=== PATIENT | female | born 1975 | race Caucasian/White ===

== ENCOUNTER → 2016-05-29 | Outpatient (REF) | payer OTHER ==
[~2016-05-29] MED LIST: MOBI7.5T10 PO; NORC5TAB PO; ROBA500T PO
== END ==
LOC: M LAB REF 16:36
PROVIDERS: ATTEND Internal Medicine
DX: N30.01 Acute cystitis with hematuria (principal)

== ENCOUNTER → 2016-06-18 | Outpatient (REF) | payer OTHER | LOC: M SMT 17:06 | PROVIDERS: ATTEND Nurse Practitioner Family | DX: R31.9 Hematuria, unspecified (principal) ==

== ENCOUNTER → 2016-07-11 | Outpatient (REF) | payer OTHER | LOC: M SMT 12:54 | PROVIDERS: ATTEND Nurse Practitioner Family | DX: N39.0 Urinary tract infection, site not specified (principal) ==

== ENCOUNTER → 2016-07-23 | Outpatient (CLI) | payer OTHER ==
[~2016-07-23] MED LIST changes: +ISOVUE-370 76% 100ML VIAL (Q9967) As Ordered ONE
--- NOTE | 2016-07-23 10:35 | REP ---
CT abdomen and pelvis without and with IV contrast: Without oral contrast. CT urogram. History: Hematuria. Comparison CT study April [address] contrast dose: 100 ml of Isovue 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 The bowel gas pattern is unremarkable. Lung window settings demonstrate segmental atelectasis with air bronchograms in the right lower lobe. This is a new finding from the April 2015 prior study. There is some linear fibrosis and discoid atelectasis in the left lower lobe as well. The liver and the spleen are normal in size and homogeneous in texture on pre- and post contrast enhanced images. No pancreatic abnormality is seen. The adrenal glands are unremarkable. There is no evidence of intrarenal nephrolithiasis on either side. No hydronephrosis is seen. The kidneys enhance symmetrically and are morphologically intact. No filling defect is seen in the intrarenal collecting systems. The ureters describe a normal course to the bladder. No filling defect is seen in the urinary bladder. No renal mass or cyst is seen. There are small physiologic cystic areas in the ovaries. Uterus is surgically absent. There is mild diverticulosis of the left colon. Small and large intestinal bowel loops are otherwise unremarkable. No abdominal wall defect is seen. No bony destructive lesion is appreciated. Impression: 1. No evidence of urinary tract calculus, hydronephrosis, cyst or mass. 2. Post cholecystectomy, hysterectomy and appendectomy. 3. Segmental atelectasis in the right lower lobe and subsegmental discoid atelectasis in the left lower lobe. Right lower lobe findings are new. Consider chest CT. Signed by Alban Matson MD 07/23/2016 02:28 P
== END ==
LOC: M RAD 08:09
PROVIDERS: ATTEND Nurse Practitioner Family
DX: R31.9 Hematuria, unspecified (principal); J98.11 Atelectasis
CPT/HCPCS: 74178; Q9967

== ENCOUNTER 2016-10-06 18:21 | Emergency (ER) | payer OTHER ==
[~2016-10-06] VITALS: Ht 165.1 cm; Wt 65.8 kg
[2016-10-06 18:21] VITALS: BP 116/66
[~2016-10-06 18:21] MED LIST changes: -ISOVUE-370 76% 100ML VIAL (Q9967) As Ordered ONE; +NORC1TAB4 PO; -NORC5TAB PO
[2016-10-06] MEDS ORDERED: TRAM50TA2 PO (18:29)
[2016-10-06] MEDS ORDERED: CIPROFLOXACIN 500 MG TAB PO ONE (19:00)
[2016-10-06] MEDS ORDERED: metroNIDAZOLE (FLAGYL) 500 MG TAB PO ONE (19:00)
[2016-10-06] MEDS ORDERED: FLAG500T PO (19:01)
[2016-10-06] MEDS ORDERED: CIPR500T89 PO (19:01)
[2016-10-06] MEDS ORDERED: metroNIDAZOLE (FLAGYL) 250 MG TAB As Ordered ONE (19:05)
== END 2016-10-06 19:20 | disposition home or self-care (01) ==
LOC: M ED 19:11
DX: K57.30 Diverticulosis of large intestine without perforation or abscess without bleeding (principal); R10.32 Left lower quadrant pain; N81.4 Uterovaginal prolapse, unspecified; M54.5 Low back pain; Z90.79 Acquired absence of other genital organ(s); Z90.49 Acquired absence of other specified parts of digestive tract; Z87.891 Personal history of nicotine dependence

== ENCOUNTER 2017-02-12 13:41 | Emergency (ER) | payer OTHER ==
[~2017-02-12] VITALS: Ht 165.1 cm; Wt 135.0 kg
[~2017-02-12 13:41] MED LIST changes: +CIPR-249 PO; +FLAG500T PO; +MOBI4TAB PO; -MOBI7.5T10 PO; +TRAM50TA2 PO
[2017-02-12] MEDS: IBUPROFEN 600 MG TAB PO ONE (14:17)
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
[2017-02-12] MEDS ORDERED: IBUP-1022 PO (15:23)
[2017-02-12] MEDS ORDERED: CYCL10TA PO (15:23)
[2017-02-12 15:36] VITALS: BP 126/72
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
== END 2017-02-12 15:38 | disposition home or self-care (01) ==
LOC: M ED 13:41 → EDBD 13:41 → M ED 15:38
DX: S13.4XXA Sprain of ligaments of cervical spine, initial encounter (principal); S70.11XA Contusion of right thigh, initial encounter; Z72.0 Tobacco use; V49.50XA Passenger injured in collision with unspecified motor vehicles in traffic accident, initial encounter; Y92.410 Unspecified street and highway as the place of occurrence of the external cause; Y93.89 Activity, other specified; Y99.9 Unspecified external cause status

== ENCOUNTER → 2018-03-27 | Outpatient (CLI) | payer OTHER ==
[2018-03-27 17:35] LABS: BASO # 0.1 10^3/uL (0.0-0.2); BASO % 0.4 % (0.0-1.0); EOS # 0.2 10^3/uL (0.0-0.50); EOS % 1.7 % (0.0-3.0); HEMATOCRIT 43.9 % (36.0-47.0); HEMOGLOBIN 14.6 g/dl (12.0-15.5); IMMATURE GRANULOCYTE % 0.4 % (0-3.0); LYMPH # 2.7 10^3/uL (1.5-4.5); LYMPH % 18.8 % (24.0-44.0); MEAN CORPUSCULAR HEMOGLOBIN 34.1 pg (27.0-33.0); MEAN CORPUSCULAR HGB CONC 33.3 g/dl (32.0-36.5); MEAN CORPUSCULAR VOLUME 102.6 fl (80.0-96.0); MONO # 0.9 10^3/uL (0.0-0.8); NEUTROPHILS # 10.3 10^3/uL (1.8-7.7); NEUTROPHILS % 72.7 % (36.0-66.0); PLATELET COUNT, AUTOMATED 263 10^3/uL (150-450); RED BLOOD COUNT 4.28 10^6/uL (4.00-5.40); RED CELL DISTRIBUTION WIDTH 13.2 % (11.5-14.5); WHITE BLOOD COUNT 14.2 10^3/uL (4.0-10.0)
== END ==
LOC: M WUC 11:35
DX: K57.93 Diverticulitis of intestine, part unspecified, without perforation or abscess with bleeding (principal)
CPT/HCPCS: 85025

== ENCOUNTER → 2018-04-15 | Outpatient (REF) | payer OTHER ==
[2018-04-15 13:08] LABS: C REACTIVE PROTEIN QUANTITATIV < 0.30 MG/DL (0.00-0.30)
== END ==
LOC: M LAB REF 12:31
DX: K58.0 Irritable bowel syndrome with diarrhea (principal)
CPT/HCPCS: 86140

== ENCOUNTER 2018-05-10 18:55 | Emergency (ER) | payer OTHER ==
[~2018-05-10] VITALS: Ht 165.1 cm; Wt 69.5 kg
[~2018-05-10 18:55] MED LIST changes: +CYCL10TA PO; +IBUP-1022 PO
[2018-05-10] MEDS ORDERED: MULTTAB24 PO (19:15)
[2018-05-10] MEDS ORDERED: ESTRTAB10 PO (19:15)
[2018-05-10] MEDS ORDERED: TURMCAP PO (19:15)
[2018-05-10] MEDS ORDERED: predniSONE 20 MG TAB PO ONE (20:15)
[2018-05-10] MEDS ORDERED: PREGABALIN 75 MG CAP(LYRICA) PO ONE (21:00)
[2018-05-10] MEDS ORDERED: PRED20TA PO ×2 (21:13→21:15)
[2018-05-10] MEDS ORDERED: LYRI75CA PO (21:13)
[2018-05-10 21:20] VITALS: BP 113/57
== END 2018-05-10 21:43 | disposition home or self-care (01) ==
LOC: M ED 18:55
DX: G90.522 Complex regional pain syndrome I of left lower limb (principal); G90.512 Complex regional pain syndrome I of left upper limb; G89.29 Other chronic pain; M54.9 Dorsalgia, unspecified; M54.2 Cervicalgia; Z72.0 Tobacco use; Z79.899 Other long term (current) drug therapy; Z91.030 Bee allergy status

== ENCOUNTER 2018-10-28 21:40 | Inpatient (IN) | payer OTHER ==
[~2018-10-28] VITALS: Ht 167.6 cm; Wt 79.8 kg
[~2018-10-28 21:40] MED LIST changes: +AMOX875T PO; +ESTRTAB10 PO; +LYRI75CA PO; +MULTTAB24 PO; -NORC1TAB4 PO; +NORC1TAB7 PO; +PRED20TA PO; +TURMCAP PO
[2018-10-28] MEDS ORDERED: FLUTISP (22:17)
[2018-10-28] MEDS ORDERED: IBUP80TA PO (22:17)
[2018-10-28 22:34] LABS: APPEARANCE, URINE CLEAR (CLEAR); BACTERIA, URINE AUTO 1+ (NEGATIVE); BILIRUBIN, URINE AUTO NEGATIVE (NEGATIVE); BLOOD, URINE BLOOD 2+ (NEGATIVE); COLOR, URINE COLORLESS (YELLOW); GLUCOSE, URINE (UA) AUTO NEGATIVE (NEGATIVE); KETONE, URINE AUTO NEGATIVE (NEGATIVE); LEUKOCYTE ESTERASE, URINE AUTO NEGATIVE (NEGATIVE); NITRITE, URINE AUTO NEGATIVE (NEGATIVE); PROTEIN, URINE AUTO NEGATIVE (NEGATIVE); RBC, URINE AUTO 2 /HPF (0-3); SPECIFIC GRAVITY URINE AUTO 1.001 (1.002-1.035); SQUAMOUS EPITHELIAL CELL UR AU 0 /HPF (0-6); UROBILINOGEN, URINE AUTO 0.2 mg/dL (0.0-2.0); WBC, URINE AUTO 0 /HPF (0-3)
[2018-10-28] MEDS ORDERED: NS 1,000 ML IV SCH (23:00)
[2018-10-28] MEDS ORDERED: ONDANSETRON 4MG/2ML VIAL (J2405) IV ONE (23:00)
[2018-10-28] MEDS ORDERED: MORPHINE 4 MG/ML 1ML VIAL/SYRINGE (J2270) IV PRN (23:00)
[2018-10-28 23:09] LABS: BASO % 0.3 % (0.0-1.0); EOS # 0.1 10^3/uL (0.0-0.50); EOS % 0.7 % (0.0-3.0); HEMATOCRIT 38.5 % (36.0-47.0); HEMOGLOBIN 13.3 g/dl (12.0-15.5); LYMPH # 2.9 10^3/uL (1.5-4.5); LYMPH % 20.8 % (24.0-44.0); MEAN CORPUSCULAR HEMOGLOBIN 34.1 pg (27.0-33.0); MEAN CORPUSCULAR HGB CONC 34.5 g/dl (32.0-36.5); MEAN CORPUSCULAR VOLUME 98.7 fl (80.0-96.0); MONO # 0.9 10^3/uL (0.0-0.8); MONO % 6.5 % (0.0-5.0); NEUTROPHILS # 9.7 10^3/uL (1.8-7.7); NEUTROPHILS % 71.3 % (36.0-66.0); PLATELET COUNT, AUTOMATED 259 10^3/uL (150-450); WHITE BLOOD COUNT 13.7 10^3/uL (4.0-10.0)
[2018-10-28] MEDS: GASTROGRAFIN SOLUTION 30ML PO SCH ×2 (23:21→23:52)
[2018-10-28 23:33] LABS: ALBUMIN 3.9 GM/DL (3.2-5.2); ALT/SGPT 27 U/L (12-78); BILIRUBIN,DIRECT < 0.1 MG/DL (0.0-0.2); BILIRUBIN,TOTAL 0.3 MG/DL (0.2-1.0); BLOOD UREA NITROGEN 10 MG/DL (7-18); CALCIUM LEVEL 9.2 MG/DL (8.5-10.1); CARBON DIOXIDE LEVEL 25 MEQ/L (21-32); CHLORIDE LEVEL 107 MEQ/L (98-107); GLOMERULAR FILTRATION RATE > 60.0 (>58); GLUCOSE, FASTING 96 MG/DL (70-100); LIPASE 70 U/L (73-393); SODIUM LEVEL 140 MEQ/L (136-145); TOTAL PROTEIN 7.6 GM/DL (6.4-8.2)
[2018-10-29] MEDS ORDERED: ISOVUE-370 76% 100ML VIAL (Q9967) As Ordered ONE (00:35)
--- NOTE | 2018-10-29 01:47 | REPVR ---
EXAM: CT Abdomen and Pelvis With Contrast EXAM DATE/TIME: 10/28/2018 10:56 PM CLINICAL HISTORY: 43 years old, female; Abdominal pain; Generalized; Additional info: Diverticulitis R/O abscess TECHNIQUE: Imaging protocol: Axial computed tomography images of the abdomen and pelvis with intravenous contrast. Coronal and sagittal reformatted images were created and reviewed. Radiation optimization: All CT scans at this facility use at least one of these dose optimization techniques: automated exposure control; mA and/or kV adjustment per patient size (includes targeted exams where dose is matched to clinical indication); or iterative reconstruction. Contrast material: ISO; Contrast volume: 100 ml; Contrast route: AC; COMPARISON: CT ABD PELVIS W/O FOL BY WIT 07/23/2016 8:28 AM FINDINGS: Lungs: Atelectasis is present at the lung bases. No basilar evidence of pulmonary edema. ABDOMEN: Liver: Liver appears normal with no focal abnormality. Gallbladder and bile ducts: Gallbladder is surgically absent. Prominent central bile ducts, likely postcholecystectomy capacitance effect. Pancreas: Pancreas appears normal. No focal mass or peripancreatic inflammation. Spleen: Spleen appears homogeneous without focal mass. Adrenals: Adrenal glands are normal in appearance. Kidneys and ureters: Kidneys appear normal, with no stone, solid mass or hydronephrosis. Stomach and bowel: No evidence of small bowel obstruction. Distal descending colon wall thickening, adjacent fat stranding and regional diverticula suggests acute diverticulitis without perforation or abscess formation at this point. Appendix: Appendix is not seen. No RLQ inflammation to suggest appendicitis. PELVIS: Bladder: Bladder appears normal. Reproductive: Uterus is surgically absent. Miniscule bilateral ovarian cysts. ABDOMEN and PELVIS: Intraperitoneal space: No pneumoperitoneum. No abnormal pelvic mass. Bones/joints: Bony structures show no acute fracture or destructive process. Soft tissues: Unremarkable. Vasculature: Main portal and splenic veins enhance normally. Atherosclerotic change present in the aorta, without aneurysm. Lymph nodes: No enlarged lymph nodes. IMPRESSION: Acute diverticulitis involving the distal descending colon without evidence of obstruction, perforation or abscess Electronically signed by: Jaxson Baum On 10/29/2018 01:46:35 AM
[2018-10-29] MEDS ORDERED: metroNIDAZOLE 500 MG in APPROPRIATE DILUENT 1 EA IV ONE (02:00)
[2018-10-29] MEDS ORDERED: CIPROFLOXACIN 400 MG in APPROPRIATE DILUENT 1 EA IV ONE (02:00)
[2018-10-29] MEDS ORDERED: VITMTA PO (02:41)
[2018-10-29] MEDS ORDERED: RA T500C2 PO (02:41)
[2018-10-29] MEDS ORDERED: MORPHINE 4 MG/ML 1ML VIAL/SYRINGE (J2270) IV PRN (03:00)
[2018-10-29] MEDS: NS 1,000 ML IV SCH ×3 (04:10→23:13)
[2018-10-29 04:55] VITALS: BP 97/54
[2018-10-29] MEDS: ACETAMINOPHEN TAB 650MG DOSE (2X325MG) PO PRN ×2 (05:05→21:00)
--- NOTE | 2018-10-29 07:18 | HPE ---
DATE OF ADMISSION: 10/28/2018 PRIMARY CARE PROVIDER: Dr. Crawford CHIEF COMPLAINT: Left lower quadrant abdominal pain. HISTORY OF PRESENT ILLNESS: The patient is a 43-year-old white female with history of diverticulitis presented to the emergency room (ER) for evaluation of acute onset left lower quadrant abdominal pain. The history is provided by herself. She stated she has diverticulitis back to four years ago. 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 She felt very bad pain which is located in her left lower quadrant. Initially it was about 4/10 but it is getting worse gradually. No radiation and the pain is sharp and she feels nausea but no vomiting at home. She also has some diarrhea but no rectal bleeding. Due to persistent pain decided to come to the hospital for the following evaluation. In the ER she underwent a CT of the abdomen and pelvis which demonstrated she has acute onset of diverticulitis. An intravenous (IV) antibiotic was given in the ER. Medicine service was called for admission. REVIEW OF SYSTEMS: Denies fever, no chills, no headache. No blurred vision. No shortness of breath. No chest pain. Positive nausea. Positive left lower quadrant abdominal pain. No tingling, numbness, or weakness in the arms or lower extremities. All other systems reviewed were negative. PAST MEDICAL HISTORY: 1. History of irritable bowel syndrome (IBS). 2. Diverticulitis back to 2013. PAST SURGICAL HISTORY: Includes: 1. Cystectomy. 2. Appendectomy. 3. Hysterectomy. 4. Left ear surgery. ALLERGIES: No known drug allergies. SOCIAL HISTORY: Smokes cigarettes 1/2 pack a day for 20 years which is ongoing and denies alcohol abuse. Denies illicit drug abuse. She is . She has three adult kids. She is FULL CODE. FAMILY HISTORY: Her father had multiple strokes. MEDICATIONS: Reviewed. PHYSICAL EXAMINATION: VITALS: Temperature 99.3, heart rate is 84, respirations are 14, blood pressure 98/57, oxygen saturation 93% on room air. GENERAL: She is awake, alert, and oriented times 3. She is not in acute distress. HEENT: Atraumatic. Pupils equal, round, and reactive to light. Extraocular muscles intact. No jaundice. Ears, nose and throat are normal. Mouth: The mucosa is dry. NECK: No jugular venous distention (JVD) or bruits. LUNGS: Clear. No crackles, no wheezing. HEART: S1, S2, regular, no murmur, not tachycardic. ABDOMEN: Soft, bowel sounds positive. There is tenderness in the left lower quadrant abdomen but no rebound. LOWER EXTREMITIES: No edema in the bilateral lower extremities. NEUROLOGIC: Nonfocal. SKIN: No rash. PSYCHIATRIC: No acute psychosis. DIAGNOSTIC LABORATORY STUDIES: Include the following: Complete blood count (CBC) and differential: White blood cell (WBC) 13.7, hemoglobin and hematocrit (H and H) 13/38, platelets 259. Sodium 140, potassium 4.0, chloride of 107, bicarbonate 25, BUN 10, creatinine 0.9, glucose 96. CT of abdomen and pelvis demonstrated acute diverticulitis in the descending colon. IMPRESSION: 1. Acute recurrent diverticulitis. 2. History of irritable bowel syndrome. PLAN: The patient will be admitted to medical surgical floor. I will start her on intravenous (IV) Cipro and Flagyl and will start her on clear liquids and Lovenox will be used for deep vein thrombosis (DVT) prophylaxis.
[2018-10-29 08:04] LABS: BASO % 0.3 % (0.0-1.0); EOS # 0.2 10^3/uL (0.0-0.50); EOS % 1.6 % (0.0-3.0); LYMPH # 2.3 10^3/uL (1.5-4.5); LYMPH % 22.8 % (24.0-44.0); MEAN CORPUSCULAR HEMOGLOBIN 34.3 pg (27.0-33.0); MEAN CORPUSCULAR HGB CONC 34.3 g/dl (32.0-36.5); MONO # 0.8 10^3/uL (0.0-0.8); MONO % 7.4 % (0.0-5.0); NEUTROPHILS # 6.9 10^3/uL (1.8-7.7); NEUTROPHILS % 67.7 % (36.0-66.0); PLATELET COUNT, AUTOMATED 212 10^3/uL (150-450); WHITE BLOOD COUNT 10.3 10^3/uL (4.0-10.0)
[2018-10-29 08:26] LABS: BLOOD UREA NITROGEN 10 MG/DL (7-18); CALCIUM LEVEL 8.9 MG/DL (8.5-10.1); CARBON DIOXIDE LEVEL 25 MEQ/L (21-32); CHLORIDE LEVEL 106 MEQ/L (98-107); CREATININE FOR GFR 1.01 MG/DL (0.55-1.30); GLOMERULAR FILTRATION RATE > 60.0 (>58); GLUCOSE, FASTING 131 MG/DL (70-100); MAGNESIUM LEVEL 1.9 MG/DL (1.8-2.4); POTASSIUM SERUM 3.2 MEQ/L (3.5-5.1); SODIUM LEVEL 139 MEQ/L (136-145)
[2018-10-29] MEDS: ENOXAPARIN 40 MG/0.4 ML SYRINGE (J1650) SC SCH (09:10)
[2018-10-29] MEDS: metroNIDAZOLE 500 MG in APPROPRIATE DILUENT 1 EA IV SCH ×2 (09:10→17:22)
[2018-10-29] MEDS ORDERED: POTASSIUM CHLORIDE 10 MEQ SR TABLET PO ONE (11:00)
--- NOTE | 2018-10-29 11:26 | IPNPDOC ---
Text Note Date of Service The patient was seen on 10/29/18. NOTE Subjective: Patient is a 43-year-old female with a PMHx of diverticulitis (this may be her 4th episode) and IBS, who presented to the ER after expressing left lower abdominal pain. As an outpatient. She was on amoxicillin for a recent possible left ear infection. Patient had imaging completed which revealed diverticulitis, she was admitted to hospitalist service for further evaluation and treatment. Patient was seen and examined at the bedside. Patient reports that her abdominal pain is doing better. Denies nausea, vomiting, has not expense any diarrhea. Denies any urinary discomfort. Denies chest pain, short of breath, palpitations. Objective: Vitals (See below) General: Lying in bed, no acute distress, comfortable, AAOx3 HEENT: NC, AT CVS: RRR, +S1S2 Lungs: Fair air entry b/l, no auscultated wheezing, rhonchi, rales Abdomen: Soft, ND, there is tenderness at the left lower quadrant Extremities: No evidence of edema, - Calf tenderness Assessment and plan: Left lower quadrant abdominal pain - likely 2/2 Acute Diverticulitis - Patient has reported at least 4 episodes of diverticulitis in the past, one of which required hospitalization - Currently, patient reports that her abdominal pain is doing better - Physical reveals left lower quadrant abdominal tenderness - Leukocytosis is improving; no lactic acidosis - CT abdomen / pelvis 10/29: Acute diverticulitis involving the distal descending colon without evidence of obstruction, perforation or abscess - Will continue with Ciprofloxacin and Flagyl (Day #1); will DC fluids when tolerating full diet - Will advance diet to Full Liquid Irritable bowel syndrome Hypokalemia - s/p supplementation DVT prophylaxis - c/w Lovenox VS,Fishbone, I+O VS, Fishbone, I+O Laboratory Tests 10/28/18 22:35 Red Blood Count 3.90 L, Mean Corpuscular Volume 98.7 H, Mean Corpuscular Hemoglobin 34.1 H, Mean Corpuscular Hemoglobin Concent 34.5, Red Cell Distribution Width 13.2, Neutrophils (%) (Auto) 71.3 H, Lymphocytes (%) (Auto) 20.8 L, Monocytes (%) (Auto) 6.5 H, Eosinophils (%) (Auto) 0.7, Basophils (%) (Auto) 0.3, Neutrophils # (Auto) 9.7 H, Lymphocytes # (Auto) 2.9, Monocytes # (Auto) 0.9 H, Eosinophils # (Auto) 0.1, Basophils # (Auto) 0.0 10/29/18 07:47 Red Blood Count 3.50 L, Mean Corpuscular Volume 100.0 H, Mean Corpuscular Hemoglobin 34.3 H, Mean Corpuscular Hemoglobin Concent 34.3, Red Cell Distribution Width 13.2, Neutrophils (%) (Auto) 67.7 H, Lymphocytes (%) (Auto) 22.8 L, Monocytes (%) (Auto) 7.4 H, Eosinophils (%) (Auto) 1.6, Basophils (%) (Auto) 0.3, Neutrophils # (Auto) 6.9, Lymphocytes # (Auto) 2.3, Monocytes # (Auto) 0.8, Eosinophils # (Auto) 0.2, Basophils # (Auto) 0.0, Calcium Level 8.9 Vital Signs Date Time Temp Pulse Resp B/P (MAP) Pulse Ox O2 Delivery O2 Flow Rate FiO2 10/29/18 04:55 98.6 83 20 97/54 (68) 92 10/29/18 04:30 Room Air I&O- Last 24 Hours up to 6 AM 10/29/18 06:00 Intake Total 133 ml Output Total 0 ml Balance 133 ml GASTON SALDIVAR MD Oct 29, 2018 11:26
[2018-10-29] MEDS ORDERED: PILL CUTTER 1 EACH XX PRN (13:45)
[2018-10-29 14:00] VITALS: BP 96/56
[2018-10-29] MEDS: traMADol 50 MG TAB PO PRN ×2 (14:59→23:13)
[2018-10-29] MEDS: CIPROFLOXACIN 400 MG in APPROPRIATE DILUENT 1 EA IV SCH (16:12)
[2018-10-29 22:00] VITALS: BP 99/56
[2018-10-30] MEDS: metroNIDAZOLE 500 MG in APPROPRIATE DILUENT 1 EA IV SCH ×2 (02:22→09:51)
[2018-10-30] MEDS: CIPROFLOXACIN 400 MG in APPROPRIATE DILUENT 1 EA IV SCH (05:18)
[2018-10-30 05:47] LABS: BASO % 0.5 % (0.0-1.0); EOS # 0.2 10^3/uL (0.0-0.50); EOS % 2.9 % (0.0-3.0); HEMATOCRIT 35.1 % (36.0-47.0); HEMOGLOBIN 11.6 g/dl (12.0-15.5); LYMPH # 2.3 10^3/uL (1.5-4.5); LYMPH % 31.3 % (24.0-44.0); MEAN CORPUSCULAR HEMOGLOBIN 34.2 pg (27.0-33.0); MEAN CORPUSCULAR VOLUME 103.5 fl (80.0-96.0); MONO # 0.6 10^3/uL (0.0-0.8); MONO % 7.8 % (0.0-5.0); NEUTROPHILS # 4.2 10^3/uL (1.8-7.7); NEUTROPHILS % 57.2 % (36.0-66.0); PLATELET COUNT, AUTOMATED 187 10^3/uL (150-450); RED BLOOD COUNT 3.39 10^6/uL (4.00-5.40); WHITE BLOOD COUNT 7.3 10^3/uL (4.0-10.0)
[2018-10-30 06:00] VITALS: BP 92/50
[2018-10-30 06:12] LABS: BLOOD UREA NITROGEN 7 MG/DL (7-18); CALCIUM LEVEL 8.1 MG/DL (8.5-10.1); CARBON DIOXIDE LEVEL 25 MEQ/L (21-32); CHLORIDE LEVEL 110 MEQ/L (98-107); CREATININE FOR GFR 0.82 MG/DL (0.55-1.30); GLOMERULAR FILTRATION RATE > 60.0 (>58); GLUCOSE, FASTING 97 MG/DL (70-100); MAGNESIUM LEVEL 1.9 MG/DL (1.8-2.4); POTASSIUM SERUM 3.8 MEQ/L (3.5-5.1); SODIUM LEVEL 140 MEQ/L (136-145)
[2018-10-30] MEDS: ENOXAPARIN 40 MG/0.4 ML SYRINGE (J1650) SC SCH (09:51)
[2018-10-30] MEDS: NS 1,000 ML IV SCH (09:52)
[2018-10-30] MEDS ORDERED: METR-265 PO (10:17)
[2018-10-30] MEDS ORDERED: CIPR-249 PO (10:17)
[2018-10-30] MEDS ORDERED: TRAM50TA2 PO (10:18)
--- NOTE | 2018-10-30 12:49 | DS.PDOC ---
Discharge Summary General Date of Admission Oct 29, 2018 at 02:47 Date of Discharge 10/30/18 Discharge Summary PROCEDURES PERFORMED DURING STAY: [None]. DISCHARGE DIAGNOSES: Acute Diverticulitis recurrent episode Secondary Diagnosis: Irritable bowel syndrome COMPLICATIONS/CHIEF COMPLAINT: Acute Diverticulitis. HISTORY OF PRESENT ILLNESS: Please see history and physical HOSPITAL COURSE: Patient is a 43-year-old female with a PMHx of diverticulitis (this may be her 5th episode) and IBS, who presented to the ER after expressing left lower abdominal pain. As an outpatient. She was on ginger xicillin for a recent possible left ear infection. Patient had imaging completed which revealed diverticulitis, she was admitted to hospitalist service for further evaluation and treatment. Acute Diverticulitis cipro and flagyl for 10 days tramadol prn for pain Irritable bowel syndrome no issues at present. DISCHARGE MEDICATIONS: Please see below. ALLERGIES: Please see below. PHYSICAL EXAMINATION ON DISCHARGE: VITAL SIGNS: Please see below. General: Lying in bed, no acute distress, comfortable, AAOx3 HEENT: NC, AT, moist mucous membranes , anicteric eyes. Neck: supple, no JVD. CVS: RRR, +S1S2, no rub murmur or gallop. Lungs: Fair air entry b/l, no auscultated wheezing, rhonchi, rales Abdomen: Soft, ND, there is tenderness at the left lower quadrant Extremities: No evidence of edema, - Calf tenderness LABORATORY DATA: Please see below. IMAGING: . Distal descending colon wall thickening, adjacent fat stranding and regional diverticula suggests acute diverticulitis without perforation or abscess formation at this point. Appendix: Appendix is not seen. No RLQ inflammation to suggest appendicitis. ACTIVITY: [As tolerated]. DIET: Full liquids for 3 days, then low roughage diet. DISCHARGE PLAN: Home DISPOSITION: . DISCHARGE INSTRUCTIONS: PMD in [address] Burns in 6 weeks for recurrent diverticulitis. DISCHARGE CONDITION: [Stable]. TIME SPENT ON DISCHARGE: 35 minutes. Vital Signs/I&Os Vital Signs Date Time Temp Pulse Resp B/P (MAP) Pulse Ox O2 Delivery O2 Flow Rate FiO2 10/30/18 06:00 98.1 68 18 92/50 (64) 91 10/29/18 04:30 Room Air I&O- Last 24 Hours up to 6 AM 10/30/18 05:59 Intake Total 2253 ml Output Total 150 ml Balance 2103 ml Laboratory Data Labs 24H Laboratory Tests 2 10/30/18 05:29: Immature Granulocyte % (Auto) 0.3, White Blood Count 7.3, Red Blood Count 3.39L, Hemoglobin 11.6L, Hematocrit 35.1L, Mean Corpuscular Volume 103.5H, Mean Corpuscular Hemoglobin 34.2H, Mean Corpuscular Hemoglobin Concent 33.0, Red Cell Distribution Width 13.0, Platelet Count 187, Neutrophils (%) (Auto) 57.2, Lymphocytes (%) (Auto) 31.3, Monocytes (%) (Auto) 7.8H, Eosinophils (%) (Auto) 2.9, Basophils (%) (Auto) 0.5, Neutrophils # (Auto) 4.2, Lymphocytes # (Auto) 2.3, Monocytes # (Auto) 0.6, Eosinophils # (Auto) 0.2, Basophils # (Auto) 0.0, Nucleated Red Blood Cells % (auto) 0.0, Anion Gap 5L, Glomerular Filtration Rate > 60.0, Blood Urea Nitrogen 7, Creatinine 0.82, Sodium Level 140, Potassium Level 3.8, Chloride Level 110H, Carbon Dioxide Level 25, Calcium Level 8.1L, Magnesium Level 1.9 CBC/BMP Laboratory Tests 10/30/18 05:29 Red Blood Count 3.39 L, Mean Corpuscular Volume 103.5 H, Mean Corpuscular Hemoglobin 34.2 H, Mean Corpuscular Hemoglobin Concent 33.0, Red Cell Distribution Width 13.0, Neutrophils (%) (Auto) 57.2, Lymphocytes (%) (Auto) 31.3, Monocytes (%) (Auto) 7.8 H, Eosinophils (%) (Auto) 2.9, Basophils (%) (Auto) 0.5, Neutrophils # (Auto) 4.2, Lymphocytes # (Auto) 2.3, Monocytes # (Auto) 0.6, Eosinophils # (Auto) 0.2, Basophils # (Auto) 0.0, Calcium Level 8.1 L Discharge Medications Scheduled Ciprofloxacin HCl (Cipro) 500 Mg Tablet, 1 TAB PO BID Metronidazole (Metronidazole) 500 Mg Tablet, 500 MG PO TID Multivitamins (Thera M Plus Tablet) 1 Each Tablet, 1 TAB PO DAILY, (Reported) Turmeric Root Extract (Turmeric) 500 Mg Capsule, 500 MG PO DAILY, (Reported) Scheduled PRN Fluticasone Propionate (Fluticasone Propionate) 16 Gm [place].susp, 2 SPRAY NA DAILY PRN for ALLERGIES, (Reported) Ibuprofen (Ibuprofen) 800 Mg Tablet, 800 MG PO Q6H PRN for PAIN, (Reported) Tramadol HCl (Tramadol HCl) 50 Mg Tablet, 25 MG PO Q8HP PRN for PAIN Allergies Coded Allergies: bee venom protein (honey bee) (Verified Allergy, Unknown, 10/28/18) CATHERINE TOUSSAINT MD Oct 30, 2018 12:49
== END 2018-10-30 14:58 | disposition home or self-care (01) | DRG 392 ==
LOC: M ED 21:40 → M ED INP 10-29 02:47 → M MSPAV 10-29 04:49
PROVIDERS: ADMIT Hospitalist; ATTEND Internal Medicine Nephrology
DX: K57.32 Diverticulitis of large intestine without perforation or abscess without bleeding (principal); Z79.899 Other long term (current) drug therapy; Z91.038 Other insect allergy status; E87.6 Hypokalemia

== ENCOUNTER 2019-01-21 06:32 | Day surgery (SDC) | payer OTHER ==
[~2019-01-21] VITALS: Ht 165.1 cm; Wt 76.7 kg
[~2019-01-21 06:32] MED LIST changes: +FLUTISP; +IBUP80TA PO; +META0.52 PO; +METR-265 PO; +NS 1,000 ML IV ONE; +RA T500C2 PO; +SIMV10TA2 PO; +VITMTA PO; +[UNRECOGNIZED DRUG - CODE] PO
[2019-01-21] MEDS ORDERED: LIDOCAINE 2% INJ 100 MG/5 ML SDV (FOR ANES.) As Ordered ONE (07:21)
[2019-01-21] MEDS ORDERED: PROPOFOL 200 MG/20 ML VIAL As Ordered ONE ×2 (07:21→07:44)
--- NOTE | 2019-01-21 07:56 | ROOR ---
Patient Name: Sabina Gomez Procedure Date: 01/21/2019 7:30 AM Date of : 1975 Age: 43 Room: [facility] Gender: Female Note Status: Finalized Procedure: Colonoscopy Indications: Follow-up of diverticulitis Providers: Efra Burns DO Referring MD: Ronel Crawford DO Requesting Provider: Medicines: Propofol per Anesthesia Complications: No immediate complications. Procedure: Pre-Anesthesia Assessment: - Prior to the procedure, a History and Physical was performed, and patient medications and allergies were reviewed. The patient is competent. The risks and benefits of the procedure and the sedation options and risks were discussed with the patient. All questions were answered and informed consent was obtained. Patient identification and proposed procedure were verified by the physician, the nurse, the anesthesiologist and the production technician in the endoscopy suite. Mental Status Examination: alert and oriented. Airway Examination: normal oropharyngeal airway and neck mobility. Respiratory Examination: clear to auscultation. CV Examination: normal. Prophylactic Antibiotics: The patient does not require prophylactic antibiotics. Prior Anticoagulants: The patient has taken no previous anticoagulant or antiplatelet agents. ASA Grade Assessment: II - A patient with mild systemic disease. After reviewing the risks and benefits, the patient was deemed in satisfactory condition to undergo the procedure. The anesthesia plan was to use monitored anesthesia care (MAC). Immediately prior to administration of medications, the patient was re-assessed for adequacy to receive sedatives. The heart rate, respiratory rate, oxygen saturations, blood pressure, adequacy of pulmonary ventilation, and response to care were monitored throughout the procedure. The physical status of the patient was re-assessed after the procedure. The Colonoscope was introduced through the anus and advanced to the cecum, identified by appendiceal orifice and ileocecal valve. The colonoscopy was performed without difficulty. The patient tolerated the procedure well. Findings: Multiple small and large-mouthed diverticula were found in the recto-sigmoid colon, sigmoid colon, descending colon and transverse colon. A less than 5 mm polyp was found in the sigmoid colon. The polyp was hyperplastic. The polyp was removed with a jumbo cold forceps. Resection and retrieval were complete. Estimated blood loss was minimal. Internal hemorrhoids were found during retroflexion. The hemorrhoids were Grade I (internal hemorrhoids that do not prolapse). The exam was otherwise without abnormality on direct and retroflexion views. Impression: - Diverticulosis in the recto-sigmoid colon, in the sigmoid colon, in the descending colon and in the transverse colon. - One less than 5 mm polyp in the sigmoid colon, removed with a jumbo cold forceps. Resected and retrieved. - Internal hemorrhoids. - The examination was otherwise normal on direct and retroflexion views. Recommendation: - Patient has a contact number available for emergencies. The signs and symptoms of potential delayed complications were discussed with the patient. Return to normal activities tomorrow. Written discharge instructions were provided to the patient. - Repeat colonoscopy in 5-10 years for surveillance based on pathology results. - Return to my office as previously scheduled. Efra Burns DO 01/21/2019 7:56:07 AM Electronically signed by Efra Burns DO Number of Addenda: 0 Note Initiated On: 01/21/2019 7:30 AM Estimated Blood Loss: Estimated blood loss was minimal.
[2019-01-21 08:15] VITALS: BP 106/70
== END 2019-01-21 08:30 | disposition home or self-care (01) ==
LOC: M OPP 06:32
PROVIDERS: ATTEND Surgery
DX: K57.30 Diverticulosis of large intestine without perforation or abscess without bleeding (principal); Z08 Encounter for follow-up examination after completed treatment for malignant neoplasm; K64.0 First degree hemorrhoids; K63.5 Polyp of colon; F17.210 Nicotine dependence, cigarettes, uncomplicated; Z79.899 Other long term (current) drug therapy; Z91.030 Bee allergy status

== ENCOUNTER → 2019-03-25 | Outpatient (REF) | payer OTHER ==
[~2019-03-25] MED LIST changes: -NS 1,000 ML IV ONE
[2019-03-25 18:29] LABS: ALBUMIN 4.3 GM/DL (3.2-5.2); ALT/SGPT 42 U/L (12-78); BILIRUBIN,TOTAL 0.4 MG/DL (0.2-1.0); BLOOD UREA NITROGEN 11 MG/DL (7-18); CALCIUM LEVEL 10.1 MG/DL (8.5-10.1); CARBON DIOXIDE LEVEL 28 MEQ/L (21-32); CHLORIDE LEVEL 105 MEQ/L (98-107); CHOLESTEROL LEVEL 242 MG/DL (<200); CHOLESTEROL RISK RATIO 5.148 (<5); CREATININE FOR GFR 0.99 MG/DL (0.55-1.30); FOLLICLE STIMULATING HORMONE 101.8 mIU/mL; GLOMERULAR FILTRATION RATE > 60.0 (>58); GLUCOSE, FASTING 91 MG/DL (70-100); HDL CHOLESTEROL 47 MG/DL (>40); LDL CHOLESTEROL 147 MG/DL (<100); NON-HDL-C 195 MG/DL; POTASSIUM SERUM 4.2 MEQ/L (3.5-5.1); SODIUM LEVEL 139 MEQ/L (136-145); THYROID STIMULATING HORMONE 0.817 uIU/ML (0.358-3.740); TOTAL PROTEIN 8.1 GM/DL (6.4-8.2); TRIGLYCERIDES LEVEL 241 MG/DL (<150)
== END ==
LOC: M SFHCPLAZ 14:39
PROVIDERS: ATTEND Nurse Practitioner Adult Health
DX: E78.2 Mixed hyperlipidemia (principal); N95.1 Menopausal and female climacteric states

== ENCOUNTER → 2019-05-28 | Outpatient (CLI) | payer OTHER ==
[~2019-05-28] MED LIST changes: -SIMV10TA2 PO; +SIMV10TA21 PO
--- NOTE | 2019-05-28 10:58 | REPMRS ---
Patient History The patient states she has not had a clinical breast exam in over a year. No known family history of cancer. Digital Woman Screen Mammo: May 28, 2019 - Exam #: [id number] Bilateral CC and MLO view(s) were taken. Technologist: Hilda Magaña, Technologist No prior studies available for comparison. FINDINGS: The breast tissue is heterogeneously dense. This may lower the sensitivity of mammography. There is no evidence of dominant mass, architectural distortion, or grouped microcalcification typical of malignancy. 3-D tomosynthesis shows no additional findings. Assessment: BI-RADS/ACR category 1 mammogram. Negative Mammogram. Recommendation Routine screening mammogram of both breasts in 1 year (for women over age 40). This patient's Lifetime Breast Cancer RIsk is estimated at 9.1 %. This mammogram was interpreted with the aid of an FDA-approved computer-aided dectection system. Electronically Signed By: Elbert Matson MD 05/28/19 0148
== END ==
LOC: M WHC 08:21
PROVIDERS: ATTEND Nurse Practitioner Adult Health
DX: Z12.31 Encounter for screening mammogram for malignant neoplasm of breast (principal)

== ENCOUNTER 2019-12-04 11:34 | Emergency (ER) | payer OTHER ==
[~2019-12-04] VITALS: Ht 165.1 cm; Wt 81.2 kg
[~2019-12-04 11:34] MED LIST changes: +CYCL-707 PO; -CYCL10TA PO
[2019-12-04] MEDS ORDERED: ONDANSETRON 4MG/2ML VIAL IV ONE (12:45)
[2019-12-04] MEDS ORDERED: NS 1,000 ML IV ONE (12:45)
[2019-12-04 13:26] LABS: BASO # 0.1 10^3/uL (0.0-0.2); BASO % 0.6 % (0.0-1.0); EOS # 0.1 10^3/uL (0.0-0.5); EOS % 1.4 % (0.0-3.0); HEMATOCRIT 42.6 % (36.0-47.0); HEMOGLOBIN 14.3 g/dl (12.0-15.5); LYMPH # 2.7 10^3/uL (1.5-5.0); LYMPH % 32.6 % (24.0-44.0); MEAN CORPUSCULAR HEMOGLOBIN 33.6 pg (27.0-33.0); MEAN CORPUSCULAR HGB CONC 33.6 g/dl (32.0-36.5); MONO # 0.4 10^3/uL (0.0-0.8); NEUTROPHILS # 4.9 10^3/uL (1.5-8.5); NEUTROPHILS % 60.3 % (36.0-66.0); PLATELET COUNT, AUTOMATED 240 10^3/uL (150-450); RED BLOOD COUNT 4.26 10^6/uL (4.00-5.40); WHITE BLOOD COUNT 8.1 10^3/uL (4.0-10.0)
[2019-12-04 14:02] LABS: ALBUMIN 4.2 GM/DL (3.2-5.2); ALT/SGPT 21 U/L (12-78); AMYLASE 30 U/L (25-115); BILIRUBIN,DIRECT < 0.1 MG/DL (0.0-0.2); BILIRUBIN,TOTAL 0.3 MG/DL (0.2-1.0); BLOOD UREA NITROGEN 12 MG/DL (7-18); CALCIUM LEVEL 9.4 MG/DL (8.5-10.1); CARBON DIOXIDE LEVEL 27 MEQ/L (21-32); CHLORIDE LEVEL 107 MEQ/L (98-107); CPK CREATINE PHOSPHOKINASE 104 U/L (26-192); GLOMERULAR FILTRATION RATE > 60.0 (>58); GLUCOSE, FASTING 85 MG/DL (70-100); LIPASE 71 U/L (73-393); MB/CK RELATIVE INDEX 0.96 (< OR =4); SODIUM LEVEL 140 MEQ/L (136-145); TOTAL PROTEIN 7.8 GM/DL (6.4-8.2); TROPONIN I < 0.02 NG/ML (< 0.10)
[2019-12-04] MEDS ORDERED: GI COCKTAIL 50ML BTL(HYOSCYAMINE/MAALOX/LIDOCAINE VISCOUS)(1:3:1) PO ONE (15:00)
[2019-12-04] MEDS ORDERED: CARA1TAB6 PO (15:47)
[2019-12-04] MEDS ORDERED: PROT1TAB2 PO (15:47)
[2019-12-04 15:57] VITALS: BP 103/66
--- NOTE | 2019-12-04 16:14 | REP ---
KUB ABDOMEN/PELVIS: KUB film of abdomen/pelvis performed. There is no evidence of a bowel obstruction. No dilated bowel loops are seen. There is mild scattered fecal material throughout the colon. No abnormal calcifications are seen. Metallic clips are seen in the right upper quadrant. There are mild degenerative changes of the spine. IMPRESSION: Unremarkable KUB. Electronically Signed by Efra Arce MD 12/07/2019 09:45 A
--- NOTE | 2019-12-05 09:26 | ECGEPIP ---
[facility] - ED Test Date: 2019-12-04 Pat Name: IVELISSE KWAN Department: Room: - Gender: Female Laser Operator: : 1975 Requested By: Sharonda Smith Order Number: [id number] Reading MD: Shorty Villeda Measurements Intervals [place] Rate: 76 P: 22 VT: 172 QRS: 74 QRSD: 105 T: 40 QT: 380 QTc: 428 Interpretive Statements SINUS RHYTHM POOR R WAVE PROGRESSION MODERATE INTRAVENTRICULAR CONDUCTION DELAY NONSPECIFIC T-WAVE ABNORMALITY NO PRIORS FOR COMPARISON Electronically Signed on 12-05-2019 9:26:19 EDT by Shorty Villeda
== END 2019-12-04 16:07 | disposition home or self-care (01) ==
LOC: M ED 11:34
DX: K29.00 Acute gastritis without bleeding (principal); I45.89 Other specified conduction disorders; G56.22 Lesion of ulnar nerve, left upper limb; K58.9 Irritable bowel syndrome, unspecified; K57.90 Diverticulosis of intestine, part unspecified, without perforation or abscess without bleeding; R51 Headache; Z79.899 Other long term (current) drug therapy; Z91.030 Bee allergy status
CPT/HCPCS: 74018; 80048; 80076; 81001; 82150; 82550; 82553; 83690; 84484; 85025; 93005; 96361; 96374; 99284; J2405

== ENCOUNTER → 2020-03-09 | Outpatient (CLI) | payer OTHER ==
[~2020-03-09] MED LIST changes: +CARA1TAB6 PO; +PROT1TAB2 PO
--- NOTE | 2020-03-09 10:37 | PFTRPT ---
Height: 65.00 Inches Weight: 180.00 Lbs BSA: 1.89 DATE: 03/09/2020 ORDERING PHYSICIAN: Mari Adler NP Pre and post bronchodilator studies have excellent technical quality. Forced vital capacity is normal. FEV1 out of proportion, obstructive index is therefore reduced. Expiratory limit of the flow-volume loop with flow rate limitation. No significant bronchodilator response is identified. Total lung capacity is elevated. Residual volume suggests air trapping. Diffusing capacity is reduced but does not correct for alveolar volume. Hemoglobin is acceptable at 13.6. Airway resistance and conductance are normal. IMPRESSION: Moderate obstructive ventilatory impairment with suspected air trapping and emphysema. No significant bronchodilator response. Please correlate clinically. MTDD
== END ==
LOC: M CARPUL 09:53
PROVIDERS: ATTEND Nurse Practitioner Adult Health
DX: R06.02 Shortness of breath (principal)

== ENCOUNTER → 2020-03-11 | Outpatient (REF) | payer OTHER | LOC: M SFHCPLAZ 08:25 | PROVIDERS: ATTEND Nurse Practitioner Adult Health | DX: E78.2 Mixed hyperlipidemia (principal) ==

== ENCOUNTER → 2020-03-11 | Outpatient (CLI) | payer OTHER ==
[2020-03-11 13:30] LABS: ALT/SGPT 24 U/L (12-78); BILIRUBIN,TOTAL 0.3 MG/DL (0.2-1.0); BLOOD UREA NITROGEN 17 MG/DL (7-18); CALCIUM LEVEL 9.4 MG/DL (8.5-10.1); CARBON DIOXIDE LEVEL 28 MEQ/L (21-32); CHLORIDE LEVEL 107 MEQ/L (98-107); CHOLESTEROL LEVEL 221 MG/DL (<200); CHOLESTEROL RISK RATIO 4.702 (<5); CREATININE FOR GFR 0.97 MG/DL (0.55-1.30); GLOMERULAR FILTRATION RATE > 60.0 (>58); GLUCOSE, FASTING 82 MG/DL (70-100); HDL CHOLESTEROL 47 MG/DL (>40); LDL CHOLESTEROL 139 MG/DL (<100); NON-HDL-C 174 MG/DL; POTASSIUM SERUM 4.9 MEQ/L (3.5-5.1); SODIUM LEVEL 139 MEQ/L (136-145); TOTAL PROTEIN 7.7 GM/DL (6.4-8.2); TRIGLYCERIDES LEVEL 174 MG/DL (<150)
== END ==
LOC: M WUC 08:47
PROVIDERS: ATTEND Nurse Practitioner Adult Health
DX: E78.2 Mixed hyperlipidemia (principal)

== ENCOUNTER 2020-08-05 12:12 | Emergency (ER) | payer OTHER ==
[~2020-08-05] VITALS: Ht 165.1 cm; Wt 165.0 kg
[2020-08-05] MEDS ORDERED: CIPR500T39 (12:26)
[2020-08-05] MEDS ORDERED: METR-265 (12:26)
[2020-08-05] MEDS ORDERED: NS 1,000 ML IV ONE (13:45)
[2020-08-05 14:31] LABS: BASO # 0.1 10^3/uL (0.0-0.2); BASO % 0.7 % (0.0-1.0); EOS # 0.2 10^3/uL (0.0-0.5); HEMOGLOBIN 15.5 g/dl (12.0-15.5); LYMPH # 2.6 10^3/uL (1.5-5.0); LYMPH % 34.6 % (24.0-44.0); MEAN CORPUSCULAR HEMOGLOBIN 33.3 pg (27.0-33.0); MEAN CORPUSCULAR HGB CONC 33.7 g/dl (32.0-36.5); MEAN CORPUSCULAR VOLUME 98.7 fl (80.0-96.0); MONO # 0.6 10^3/uL (0.0-0.8); MONO % 7.9 % (2.0-8.0); NEUTROPHILS # 4.1 10^3/uL (1.5-8.5); NEUTROPHILS % 54.5 % (36.0-66.0); PLATELET COUNT, AUTOMATED 240 10^3/uL (150-450); RED BLOOD COUNT 4.66 10^6/uL (4.00-5.40); WHITE BLOOD COUNT 7.5 10^3/uL (4.0-10.0)
[2020-08-05] MEDS ORDERED: ISOVUE-370 76% 100ML VIAL As Ordered ONE (15:06)
[2020-08-05 15:08] LABS: ALBUMIN 4.1 GM/DL (3.2-5.2); ALT/SGPT 37 U/L (12-78); BILIRUBIN,DIRECT < 0.1 MG/DL (0.0-0.2); BILIRUBIN,TOTAL 0.2 MG/DL (0.2-1.0); CK-MB VALUE MASS < 1.0 NG/ML (<3.6); CPK CREATINE PHOSPHOKINASE 64 U/L (26-192); FREE T4 1.03 NG/DL (0.76-1.46); MB/CK RELATIVE INDEX 1.56 (< OR =4); TOTAL PROTEIN 7.8 GM/DL (6.4-8.2); TROPONIN I < 0.02 NG/ML (< 0.10)
--- NOTE | 2020-08-05 15:48 | REP ---
INDICATION: left chest/shoulder pain, left arm feels cold. COMPARISON: None. TECHNIQUE: Chest CT with IV contrast. FINDINGS: There are curvilinear densities in the lung bases bilaterally which could represent atelectasis or scarring. There is a nodule like component of this density at its inferior margin on the right measuring 18 mm in diameter. There are no comparison studies to document stability. Therefore, I would recommend follow-up CT for further evaluation in 3 months. There are no other lung nodules or masses. There are no infiltrates or pleural effusions. The thoracic aorta is unremarkable. Contrast is infused into the right upper extremity venous system. The left subclavian artery is adequately opacified. No stenosis is identified within the visualized portion of the left subclavian artery. The cardiac size is normal. There is no pericardial effusion. There is no mediastinal, hilar or axillary lymph node enlargement. The visualized upper abdominal structures are unremarkable. Surgical clips are incidentally identified in the gallbladder fossa. IMPRESSION: Curvilinear densities in the lung bases compatible with atelectasis/scarring, however there is a nodular component of this finding on the right. Therefore follow up CT in 3 months is recommended for further evaluation. No evidence of stenosis in the visualized portion of the left subclavian artery. Otherwise, negative CT study of the chest. <Electronically signed by Efra Jaramillo > 08/05/20 [id number]
[2020-08-05 16:24] VITALS: BP 126/88
--- NOTE | 2020-08-07 08:02 | ECGEPIP ---
[facility] - ED Test Date: 2020-08-05 Pat Name: IVELISSE KWAN Department: Room: - Gender: Female [employer] Helper: VIANCA : 1975 Requested By: RUBÉN Fraser Order Number: [id number] Reading MD: Sharonda Smith Measurements Intervals Duncan Rate: 68 P: 36 DE: 190 QRS: 70 QRSD: 98 T: 24 QT: 380 QTc: 404 Interpretive Statements Normal sinus rhythm Nonspecific T wave abnormality similar 12/04/19 Electronically Signed on 08-07-2020 8:02:15 EDT by Sharonda Smith
--- NOTE | 2020-08-08 13:44 | ED PDOC ---
Post-Departure Follow-Up ct chest formal report faxed to kael ferrera for fu Birgit Rasmussen MD Aug 08, 2020 13:44
== END 2020-08-05 16:44 | disposition home or self-care (01) ==
LOC: M ED 12:12
DX: R20.2 Paresthesia of skin (principal); R53.83 Other fatigue; R91.1 Solitary pulmonary nodule; R51.9 Headache, unspecified; E78.00 Pure hypercholesterolemia, unspecified; F17.200 Nicotine dependence, unspecified, uncomplicated; K57.32 Diverticulitis of large intestine without perforation or abscess without bleeding; K58.9 Irritable bowel syndrome, unspecified; Z87.440 Personal history of urinary (tract) infections; M54.9 Dorsalgia, unspecified; Z79.899 Other long term (current) drug therapy; Z91.030 Bee allergy status
CPT/HCPCS: 71260; 80047; 80076; 81001; 82550; 82553; 84439; 84443; 84484; 85025; 93005; 96360; 96361; 99284; Q9967

== ENCOUNTER → 2020-08-23 | Outpatient (CLI) | payer OTHER ==
[~2020-08-23] MED LIST changes: +CIPR500T39; +METR-265
--- NOTE | 2020-08-24 02:54 | REPPI ---
INDICATION: M25.551 RIGHT HIP PAIN COMPARISON: None. TECHNIQUE: AP and frog-lateral views of the right hip FINDINGS: Generalized age-related changes include subtle increased sclerosis to the acetabulum with minimal joint space narrowing. No further overt osteoarthritic or significant degenerative changes are appreciated. No evidence for acute or healed injury. Surrounding soft tissues are normal. IMPRESSION: Mild generalized age-related changes. <Electronically signed by Shaji Meza > 08/24/20 [id number]
== END ==
LOC: M PLAIMG 14:29
PROVIDERS: ATTEND Nurse Practitioner Adult Health
DX: M25.551 Pain in right hip (principal); M16.11 Unilateral primary osteoarthritis, right hip

== ENCOUNTER → 2020-11-04 | Outpatient (CLI) | payer OTHER ==
[2020-11-04 17:09] LABS: ALT/SGPT 23 U/L (12-78); BILIRUBIN,TOTAL 0.4 MG/DL (0.2-1.0); BLOOD UREA NITROGEN 17 MG/DL (7-18); CALCIUM LEVEL 9.6 MG/DL (8.5-10.1); CARBON DIOXIDE LEVEL 27 MEQ/L (21-32); CHLORIDE LEVEL 106 MEQ/L (98-107); CHOLESTEROL LEVEL 235 MG/DL (<200); CHOLESTEROL RISK RATIO 5.595 (<5); CREATININE FOR GFR 0.91 MG/DL (0.55-1.30); GLOMERULAR FILTRATION RATE > 60.0 (>58); GLUCOSE, FASTING 94 MG/DL (70-100); HDL CHOLESTEROL 42 MG/DL (>40); LDL CHOLESTEROL 143 MG/DL (<100); NON-HDL-C 193 MG/DL; POTASSIUM SERUM 4.2 MEQ/L (3.5-5.1); SODIUM LEVEL 137 MEQ/L (136-145); TOTAL 25(OH) VITAMIN D 23.6 NG/ML (30.0-100.0); TOTAL PROTEIN 7.9 GM/DL (6.4-8.2); TRIGLYCERIDES LEVEL 252 MG/DL (<150)
== END ==
LOC: M WUC 11:23
PROVIDERS: ATTEND Nurse Practitioner Adult Health
DX: E78.2 Mixed hyperlipidemia (principal); Z13.21 Encounter for screening for nutritional disorder

== ENCOUNTER → 2020-11-16 | Outpatient (CLI) | payer OTHER ==
[~2020-11-16] MED LIST changes: +ISOVUE-370 76% 100ML VIAL As Ordered ONE
--- NOTE | 2020-11-16 17:49 | REP ---
INDICATION: LUNG NODULE FOLLOW UP COMPARISON: Multiple latest 08/05/2020 TECHNIQUE: Standard helical technique after intravenous contrast. 100 cc Isovue 370. FINDINGS: Mediastinum and pulmonary lien are within normal limits. No mass or adenopathy has developed. There are no pleural or pericardial effusions. The imaged upper abdomen and imaged osseous structures are within normal limits. Evaluation of the lung rainey shows unchanged bilateral lower lung field curvilinear and nodular densities. In the medial basal segment of the left lower lobe there is a 9 mm size nodule also seen on prior CT of the abdomen and pelvis lung base images of 10/29/2018 and stable from that exam. No new abnormal nodules, masses, or opacities are present. Stable emphysematous changes are again noted status quo IMPRESSION: Stable CT examination of the chest as described above. <Electronically signed by Jae Douglas > 11/16/20 [id number]
== END ==
LOC: M RAD 17:10
PROVIDERS: ATTEND Nurse Practitioner Adult Health
DX: R91.1 Solitary pulmonary nodule (principal); J43.9 Emphysema, unspecified; R91.8 Other nonspecific abnormal finding of lung field
CPT/HCPCS: 71260; Q9967

== ENCOUNTER → 2021-04-21 | Outpatient (CLI) | payer OTHER ==
[~2021-04-21] MED LIST changes: -ISOVUE-370 76% 100ML VIAL As Ordered ONE
[2021-04-21 19:16] LABS: BASO # 0.1 10^3/uL (0.0-0.2); BASO % 0.6 % (0.0-1.0); EOS # 0.2 10^3/uL (0.0-0.5); EOS % 1.8 % (0.0-3.0); HEMATOCRIT 46.4 % (36.0-47.0); HEMOGLOBIN 15.2 g/dl (12.0-15.5); LYMPH # 2.9 10^3/uL (1.5-5.0); LYMPH % 24.4 % (24.0-44.0); MEAN CORPUSCULAR HEMOGLOBIN 32.8 pg (27.0-33.0); MEAN CORPUSCULAR HGB CONC 32.8 g/dl (32.0-36.5); MEAN CORPUSCULAR VOLUME 100.2 fl (80.0-96.0); MONO # 0.7 10^3/uL (0.0-0.8); MONO % 5.8 % (2.0-8.0); NEUTROPHILS % 67.1 % (36.0-66.0); PLATELET COUNT, AUTOMATED 263 10^3/uL (150-450); RED BLOOD COUNT 4.63 10^6/uL (4.00-5.40); WHITE BLOOD COUNT 11.9 10^3/uL (4.0-10.0)
== END ==
LOC: M WUC 15:02
PROVIDERS: ATTEND Nurse Practitioner Family
DX: K57.93 Diverticulitis of intestine, part unspecified, without perforation or abscess with bleeding (principal)

== ENCOUNTER → 2021-08-18 | Outpatient (CLI) | payer OTHER ==
[2021-08-18 13:01] LABS: BASO % 0.4 % (0.0-1.0); EOS # 0.1 10^3/uL (0.0-0.5); EOS % 1.4 % (0.0-3.0); HEMATOCRIT 43.6 % (36.0-47.0); HEMOGLOBIN 14.9 g/dl (12.0-15.5); LYMPH # 2.5 10^3/uL (1.5-5.0); LYMPH % 24.9 % (24.0-44.0); MEAN CORPUSCULAR HEMOGLOBIN 33.9 pg (27.0-33.0); MEAN CORPUSCULAR HGB CONC 34.2 g/dl (32.0-36.5); MEAN CORPUSCULAR VOLUME 99.1 fl (80.0-96.0); MONO # 0.7 10^3/uL (0.0-0.8); MONO % 6.9 % (2.0-8.0); NEUTROPHILS # 6.5 10^3/uL (1.5-8.5); NEUTROPHILS % 66.1 % (36.0-66.0); PLATELET COUNT, AUTOMATED 271 10^3/uL (150-450); WHITE BLOOD COUNT 9.9 10^3/uL (4.0-10.0)
== END ==
LOC: M WUC 11:10
PROVIDERS: ATTEND Physician Assistant
DX: K57.33 Diverticulitis of large intestine without perforation or abscess with bleeding (principal)

== ENCOUNTER → 2021-11-17 | Outpatient (CLI) | payer OTHER ==
[~2021-11-17] MED LIST changes: +E-Z-GAS II EFFERVESCENT PACKET (SODIUM BICARB./CITRIC ACID/SIMETHICONE) As Ordered ONE; +E-Z-HD 98% w/w 340GM SUSP BTL As Ordered ONE; +E-Z-PAQUE 96% w/w SUSP 176GM BTL As Ordered ONE
== END ==
LOC: M RAD 08:08
PROVIDERS: ATTEND Physician Assistant Medical
DX: K44.9 Diaphragmatic hernia without obstruction or gangrene (principal)

== ENCOUNTER → 2021-11-17 | Outpatient (CLI) | payer OTHER ==
[~2021-11-17] MED LIST changes: -E-Z-GAS II EFFERVESCENT PACKET (SODIUM BICARB./CITRIC ACID/SIMETHICONE) As Ordered ONE; -E-Z-HD 98% w/w 340GM SUSP BTL As Ordered ONE; -E-Z-PAQUE 96% w/w SUSP 176GM BTL As Ordered ONE
== END ==
LOC: M WHC 11:13
PROVIDERS: ATTEND Physician Assistant Medical
DX: Z12.31 Encounter for screening mammogram for malignant neoplasm of breast (principal)

== ENCOUNTER → 2022-03-02 | Outpatient (REF) | payer OTHER ==
[2022-03-02 13:21] LABS: BASO % 0.5 % (0.0-1.0); EOS # 0.2 10^3/uL (0.0-0.5); EOS % 2.9 % (0.0-3.0); HEMATOCRIT 47.8 % (36.0-47.0); HEMOGLOBIN 15.4 g/dl (12.0-15.5); LYMPH # 2.5 10^3/uL (1.5-5.0); MEAN CORPUSCULAR HEMOGLOBIN 32.9 pg (27.0-33.0); MEAN CORPUSCULAR HGB CONC 32.2 g/dl (32.0-36.5); MEAN CORPUSCULAR VOLUME 102.1 fl (80.0-96.0); MONO # 0.6 10^3/uL (0.0-0.8); MONO % 8.1 % (2.0-8.0); NEUTROPHILS # 4.1 10^3/uL (1.5-8.5); NEUTROPHILS % 55.2 % (36.0-66.0); PLATELET COUNT, AUTOMATED 241 10^3/uL (150-450); RED BLOOD COUNT 4.68 10^6/uL (4.00-5.40); WHITE BLOOD COUNT 7.5 10^3/uL (4.0-10.0)
[2022-03-02 14:44] LABS: BLOOD UREA NITROGEN 13 MG/DL (7-18); CREATININE FOR GFR 1.01 MG/DL (0.55-1.30); GLUCOSE, FASTING 95 MG/DL (70-100)
[2022-03-02 14:45] LABS: ALBUMIN 4.1 GM/DL (3.2-5.2); ALT/SGPT 19 U/L (12-78); BILIRUBIN,TOTAL 0.3 MG/DL (0.2-1.0); CALCIUM LEVEL 9.9 MG/DL (8.5-10.1); CARBON DIOXIDE LEVEL 29 MEQ/L (21-32); CHLORIDE LEVEL 103 MEQ/L (98-107); CHOLESTEROL LEVEL 245 MG/DL (<200); CHOLESTEROL RISK RATIO 5.975 (<5); GLOMERULAR FILTRATION RATE > 60.0 (>58); HDL CHOLESTEROL 41 MG/DL (>40); LDL CHOLESTEROL 150 MG/DL (<100); NON-HDL-C 204 MG/DL; POTASSIUM SERUM 4.5 MEQ/L (3.5-5.1); SODIUM LEVEL 136 MEQ/L (136-145); THYROID STIMULATING HORMONE 0.791 uIU/ML (0.358-3.740); TOTAL PROTEIN 7.7 GM/DL (6.4-8.2); TRIGLYCERIDES LEVEL 271 MG/DL (<150)
[2022-03-02 15:14] LABS: TOTAL 25(OH) VITAMIN D 28.2 NG/ML (30.0-100.0)
== END ==
LOC: M SFHCADAM 09:16
PROVIDERS: ATTEND Physician Assistant Medical
DX: E78.2 Mixed hyperlipidemia (principal); Z72.0 Tobacco use; K21.9 Gastro-esophageal reflux disease without esophagitis

== ENCOUNTER 2022-03-20 16:21 | Emergency (ER) | payer OTHER ==
[~2022-03-20] VITALS: Ht 165.1 cm; Wt 80.7 kg
[2022-03-20 21:34] LABS: BASO % 0.5 % (0.0-1.0); EOS # 0.2 10^3/uL (0.0-0.5); EOS % 2.1 % (0.0-3.0); HEMATOCRIT 42.4 % (36.0-47.0); HEMOGLOBIN 14.4 g/dl (12.0-15.5); LYMPH # 3.4 10^3/uL (1.5-5.0); LYMPH % 39.9 % (24.0-44.0); MEAN CORPUSCULAR HEMOGLOBIN 33.2 pg (27.0-33.0); MEAN CORPUSCULAR VOLUME 97.7 fl (80.0-96.0); MONO # 0.6 10^3/uL (0.0-0.8); MONO % 6.7 % (2.0-8.0); NEUTROPHILS # 4.3 10^3/uL (1.5-8.5); NEUTROPHILS % 50.6 % (36.0-66.0); PLATELET COUNT, AUTOMATED 231 10^3/uL (150-450); RED BLOOD COUNT 4.34 10^6/uL (4.00-5.40); WHITE BLOOD COUNT 8.5 10^3/uL (4.0-10.0)
[2022-03-20 22:29] LABS: BLOOD UREA NITROGEN 15 MG/DL (7-18); CARBON DIOXIDE LEVEL 23 MEQ/L (21-32); CHLORIDE LEVEL 107 MEQ/L (98-107); CREATININE FOR GFR 0.94 MG/DL (0.55-1.30); GLOMERULAR FILTRATION RATE > 60.0 (>58); GLUCOSE, FASTING 96 MG/DL (70-100); NT-PRO BNP 34 PG/ML (<125); POTASSIUM SERUM 3.9 MEQ/L (3.5-5.1); SODIUM LEVEL 137 MEQ/L (136-145)
[2022-03-20 23:00] VITALS: BP 109/62
[2022-03-20] MEDS ORDERED: KETOROLAC 60MG 2ML VIAL IM ONE (23:00)
== END 2022-03-20 23:08 | disposition home or self-care (01) ==
LOC: M ED 16:21
DX: R53.81 Other malaise (principal); M54.9 Dorsalgia, unspecified; J98.11 Atelectasis; E78.5 Hyperlipidemia, unspecified; F41.1 Generalized anxiety disorder; K58.9 Irritable bowel syndrome, unspecified; F17.200 Nicotine dependence, unspecified, uncomplicated; Z91.030 Bee allergy status; Z90.49 Acquired absence of other specified parts of digestive tract; Z79.899 Other long term (current) drug therapy
CPT/HCPCS: 36415; 71045; 80048; 83880; 85025; 87486; 87581; 87633; 87798; 93005; 96372; 99284; J1885

== ENCOUNTER 2023-06-15 10:45 | Emergency (ER) | payer OTHER, SELFPAY ==
[~2023-06-15] VITALS: Ht 167.6 cm; Wt 84.2 kg
[2023-06-15 11:53] LABS: HEMATOCRIT 44.9 % (36.0-47.0); HEMOGLOBIN 15.2 g/dl (12.0-15.5); MEAN CORPUSCULAR HGB CONC 33.9 g/dl (32.0-36.5); MEAN CORPUSCULAR VOLUME 97.6 fl (80.0-96.0); PLATELET COUNT, AUTOMATED 243 10^3/uL (150-450); WHITE BLOOD COUNT 7.8 10^3/uL (4.0-10.0)
[2023-06-15 11:59] LABS: ERYTHROCYTE SEDIMENTATION RATE 29 mm/hr (0-20)
[2023-06-15 12:22] LABS: C REACTIVE PROTEIN QUANTITATIV < 0.40 MG/DL (<1.0); LIPASE 24 U/L (12-53)
[2023-06-15 12:24] LABS: ALKALINE PHOSPHATASE 77 U/L (46-116); ALT/SGPT 15 U/L (7.0-40); AST/SGOT 17 U/L (<34); BILIRUBIN,DIRECT < 0.1 MG/DL (<0.4); BILIRUBIN,TOTAL 0.4 MG/DL (0.3-1.2); BLOOD UREA NITROGEN 12 MG/DL (9-23); CALCIUM LEVEL 9.5 MG/DL (8.5-10.1); CARBON DIOXIDE LEVEL 24 MMOL/L (20-31); CHLORIDE LEVEL 107 MMOL/L (98-107); CREATININE FOR GFR 0.89 MG/DL (0.55-1.30); GLOMERULAR FILTRATION RATE > 60.0 (>58); GLUCOSE, FASTING 99 MG/DL (60-100); POTASSIUM SERUM 4.5 MMOL/L (3.5-5.1); SODIUM LEVEL 137 MMOL/L (136-145); TOTAL PROTEIN 7.7 G/DL (5.7-8.2)
[2023-06-15 12:26] LABS: THYROID STIMULATING HORMONE 0.706 uIU/ML (0.55-4.78); THYROXINE (T4) 10.1 UG/DL (4.5-10.9)
[2023-06-15 12:53] LABS: VITAMIN B12 LEVEL 393 PG/ML (211-911)
[2023-06-15 12:56] LABS: FOLATE 16.23 NG/ML (>5.4)
[2023-06-15] MEDS ORDERED: ISOVUE-370 76% 100ML VIAL As Ordered ONE (13:27)
[2023-06-15] MEDS ORDERED: ONDANSETRON 4MG 2ML VIAL IV ONE (14:00)
[2023-06-15 17:40] VITALS: BP 109/69; TEMP 97.6; O2SAT 97
== END 2023-06-15 17:44 | disposition home or self-care (01) ==
LOC: M ED 10:45
DX: R10.9 Unspecified abdominal pain (principal); R94.31 Abnormal electrocardiogram [ECG] [EKG]; F17.210 Nicotine dependence, cigarettes, uncomplicated; Z91.030 Bee allergy status
CPT/HCPCS: 71046; 74177; 80048; 80076; 81001; 82607; 82746; 83690; 84436; 84443; 84630; 85027; 85652; 86140; 93005; 96374; 99284; J2405; Q9967

== ENCOUNTER → 2023-11-14 | Outpatient (CLI) | payer MEDICAID ==
[2023-11-14 13:44] LABS: BASO # 0.1 10^3/uL (0.0-0.2); BASO % 0.7 % (0.0-1.0); EOS # 0.2 10^3/uL (0.0-0.5); EOS % 3.1 % (0.0-3.0); HEMATOCRIT 42.9 % (36.0-47.0); HEMOGLOBIN 14.4 g/dl (12.0-15.5); LYMPH # 2.6 10^3/uL (1.5-5.0); LYMPH % 38.4 % (24.0-44.0); MEAN CORPUSCULAR HEMOGLOBIN 33.4 pg (27.0-33.0); MEAN CORPUSCULAR HGB CONC 33.6 g/dl (32.0-36.5); MEAN CORPUSCULAR VOLUME 99.5 fl (80.0-96.0); MONO # 0.5 10^3/uL (0.0-0.8); MONO % 7.4 % (2.0-8.0); NEUTROPHILS # 3.4 10^3/uL (1.5-8.5); PLATELET COUNT, AUTOMATED 254 10^3/uL (150-450); RED BLOOD COUNT 4.31 10^6/uL (4.00-5.40); WHITE BLOOD COUNT 6.9 10^3/uL (4.0-10.0)
[2023-11-14 14:09] LABS: ALBUMIN 3.8 G/DL (3.2-5.2); ALKALINE PHOSPHATASE 81 U/L (46-116); ALT/SGPT 15 U/L (7.0-40); AST/SGOT < 8 U/L (<34); BILIRUBIN,TOTAL 0.4 MG/DL (0.3-1.2); BLOOD UREA NITROGEN 16 MG/DL (9-23); CALCIUM LEVEL 10.1 MG/DL (8.5-10.1); CARBON DIOXIDE LEVEL 28 MMOL/L (20-31); CHLORIDE LEVEL 107 MMOL/L (98-107); CHOLESTEROL LEVEL 283 MG/DL (<200); CHOLESTEROL RISK RATIO 7.88 (<5); CREATININE FOR GFR 0.99 MG/DL (0.55-1.30); GLOMERULAR FILTRATION RATE > 60.0 (>58); GLUCOSE, FASTING 89 MG/DL (60-100); HDL CHOLESTEROL 35.9 MG/DL (>40); LDL CHOLESTEROL 194.9 MG/DL (<100); NON-HDL-C 247.1 MG/DL; POTASSIUM SERUM 5.1 MMOL/L (3.5-5.1); SODIUM LEVEL 139 MMOL/L (136-145); TOTAL 25(OH) VITAMIN D 24.1 NG/ML (20.0-100.0); TRIGLYCERIDES LEVEL 261 MG/DL (<150)
== END ==
LOC: M PLALAB 08:52
PROVIDERS: ATTEND Physician Assistant Medical
DX: K21.9 Gastro-esophageal reflux disease without esophagitis (principal); Z72.0 Tobacco use; E78.2 Mixed hyperlipidemia

== ENCOUNTER 2024-12-01 21:45 | Emergency (ER) | payer OTHER ==
[~2024-12-01 21:45] MED LIST changes: +ACET1TAB55 PO; +COLA100C5 PO; +IBUP200C35 PO; +K2 P1TAB PO; +LORA-1041 PO; +OMEP1CAP73 PO
[2024-12-01 22:29] LABS: BASO # 0.0 10^3/uL (0.0-0.2); BASO % 0.4 % (0.0-1.0); EOS # 0.3 10^3/uL (0.0-0.5); EOS % 3.0 % (0.0-3.0); LYMPH # 3.6 10^3/uL (1.5-5.0); LYMPH % 40.4 % (24.0-44.0); MONO # 0.7 10^3/uL (0.0-0.8); MONO % 7.3 % (2.0-8.0); NEUTROPHILS # 4.4 10^3/uL (1.5-8.5); NEUTROPHILS % 48.8 % (36.0-66.0); PLATELET COUNT, AUTOMATED 240 10^3/uL (150-450)
[2024-12-01 22:47] LABS: CALCIUM LEVEL 9.9 MG/DL (8.5-10.1); CARBON DIOXIDE LEVEL 27 MMOL/L (20-31); CHLORIDE LEVEL 104 MMOL/L (98-107); CK-MB VALUE MASS < 1.0 NG/ML (<3.6); CPK CREATINE PHOSPHOKINASE 61 U/L (34-145); CREATININE FOR GFR 0.99 MG/DL (0.55-1.30); GLOMERULAR FILTRATION RATE 69.5 (>51); POTASSIUM SERUM 4.3 MMOL/L (3.5-5.1); SODIUM LEVEL 140 MMOL/L (136-145)
[2024-12-01 23:59] VITALS: TEMP 97.1
[2024-12-02] MEDS ORDERED: ISOVUE-370 76% 100 ML VIAL As Ordered ONE (01:57)
[2024-12-02] MEDS: KETOROLAC 30 MG/ML 1 ML VIAL IV ONE (02:21)
[2024-12-02 03:00] VITALS: BP 116/56
[2024-12-02 05:00] VITALS: O2SAT 95
== END 2024-12-02 05:20 | disposition left against medical advice (07) ==
LOC: M ED 21:45
DX: R07.9 Chest pain, unspecified (principal); E55.9 Vitamin D deficiency, unspecified; K21.9 Gastro-esophageal reflux disease without esophagitis; K58.9 Irritable bowel syndrome, unspecified; F41.9 Anxiety disorder, unspecified; K57.30 Diverticulosis of large intestine without perforation or abscess without bleeding; K44.9 Diaphragmatic hernia without obstruction or gangrene; Z91.030 Bee allergy status; Z79.1 Long term (current) use of non-steroidal anti-inflammatories (NSAID); Z79.899 Other long term (current) drug therapy
CPT/HCPCS: 71045; 71275; 80048; 82550; 82553; 84484; 85025; 93005; 93041; 94760; 96374; 99285; J1885; Q9967

== ENCOUNTER 2025-03-02 10:55 | Emergency (ER) | payer OTHER ==
[~2025-03-02] VITALS: Ht 170.2 cm; Wt 81.9 kg
[~2025-03-02 10:55] MED LIST changes: -IBUP-1022 PO; +IBUP600T42 PO; -RA T500C2 PO; +TURM500C10 PO
[2025-03-02] MEDS ORDERED: CEPH500C (11:24)
[2025-03-02] MEDS: LIDOCAINE 5% PATCH TD ONE (17:42)
[2025-03-02] MEDS: ACETAMINOPHEN 325 MG TAB PO ONE (17:43)
[2025-03-02] MEDS: KETOROLAC 30 MG/ML 1 ML VIAL IM ONE (17:46)
[2025-03-02 17:54] LABS: APPEARANCE, URINE CLEAR (CLEAR); BACTERIA, URINE AUTO NEGATIVE (NEGATIVE); BILIRUBIN, URINE AUTO NEGATIVE (NEGATIVE); BLOOD, URINE BLOOD NEGATIVE (NEGATIVE); GLUCOSE, URINE (UA) AUTO NEGATIVE (NEGATIVE); KETONE, URINE AUTO NEGATIVE (NEGATIVE); LEUKOCYTE ESTERASE, URINE AUTO NEGATIVE (NEGATIVE); NITRITE, URINE AUTO NEGATIVE (NEGATIVE); PROTEIN, URINE AUTO NEGATIVE (NEGATIVE); RBC, URINE AUTO 0 /HPF (0-3); SPECIFIC GRAVITY URINE AUTO 1.012 (1.002-1.035); SQUAMOUS EPITHELIAL CELL UR AU 0 /HPF (0-6); UROBILINOGEN, URINE AUTO 0.2 mg/dL (0.0-2.0); WBC, URINE AUTO 0 /HPF (0-3)
[2025-03-02 18:45] VITALS: BP 112/65; O2SAT 95
[2025-03-02] MEDS ORDERED: KETO-204 PO (18:48)
[2025-03-02] MEDS ORDERED: LIDO1ADH93 TOP (18:48)
[2025-03-02 19:02] VITALS: TEMP 97.2
== END 2025-03-02 19:09 | disposition home or self-care (01) ==
LOC: M ED 10:55
DX: M54.2 Cervicalgia (principal); R10.A1 Flank pain, right side; R51.9 Headache, unspecified; M54.50 Low back pain, unspecified; Z91.030 Bee allergy status; Z79.1 Long term (current) use of non-steroidal anti-inflammatories (NSAID); Z79.899 Other long term (current) drug therapy
CPT/HCPCS: 70450; 81001; 96372; 99284; J1885

== ENCOUNTER → 2025-03-19 | Outpatient (CLI) | payer OTHER ==
[~2025-03-19] MED LIST changes: +CEPH500C; +KETO-204 PO; +LIDO1ADH93 TOP
[2025-03-19 13:51] LABS: ESTIMATED AVERAGE GLUCOSE 108.0 MG/DL (60-110)
[2025-03-19 14:13] LABS: ALT/SGPT 17.0 U/L (7.0-40); AST/SGOT 14.0 U/L (<34); CALCIUM LEVEL 10.6 MG/DL (8.5-10.1); CARBON DIOXIDE LEVEL 27.0 MMOL/L (20-31); CHLORIDE LEVEL 107.0 MMOL/L (98-107); CHOLESTEROL LEVEL 295.0 MG/DL (<200); CHOLESTEROL RISK RATIO 7.16 (<5); CREATININE FOR GFR 1.1 MG/DL (0.55-1.30); GLOMERULAR FILTRATION RATE 61.2 (>51); LDL CHOLESTEROL 210.8 MG/DL (<100); NON-HDL-C 253.8 MG/DL; POTASSIUM SERUM 5.5 MMOL/L (3.5-5.1); SODIUM LEVEL 142.0 MMOL/L (136-145); TRIGLYCERIDES LEVEL 215.0 MG/DL (<150)
== END ==
LOC: M PLALAB 11:41
PROVIDERS: ATTEND Family Medicine
DX: E78.2 Mixed hyperlipidemia (principal); R73.01 Impaired fasting glucose

== ENCOUNTER → 2025-03-19 | Outpatient (REF) | payer OTHER | LOC: M SFHCPLAZ 11:08 | PROVIDERS: ATTEND Family Medicine | DX: E78.2 Mixed hyperlipidemia (principal); R73.01 Impaired fasting glucose ==